=== PATIENT | female | born 1950 | race Caucasian/White ===

== ENCOUNTER → 2020-08-29 15:19 | Outpatient (CLI) | payer MEDICARE, OTHER, SELFPAY ==
--- NOTE | ~2020-08-29 | MM_ITS ---
EXAMINATION: MM screening kenna BI w stephan HISTORY: Screening mammogram TECHNIQUE: Craniocaudal and mediolateral oblique 3-D tomosynthesis images were obtained and synthetic 2-D images were generated. CAD analysis was submitted and interpreted. COMPARISON: 11/20/2018, 11/18/2017 bilateral digital screening mammogram examinations BREAST PARENCHYMAL COMPOSITION: There are scattered areas of fibroglandular density. FINDINGS: Stable mild fibroglandular asymmetry and occasional benign calcifications. There is no evid ence of suspicious mass, calcification, or architectural distortion to suggest malignancy in either b reast. There has been no suspicious interval change. IMPRESSION: 1. No mammographic evidence of malignancy. 2. Recommend routine screening mammography in one year. BI-RADS Category 2: Benign finding(s). Reviewed, dictated and finalized at location B.
== END ==
PROVIDERS: Visit Provider Nurse Practitioner Obstetrics & Gynecology
DX: Z12.31 Encounter for screening mammogram for malignant neoplasm of breast (principal)
CPT/HCPCS: 77063; 77067

== ENCOUNTER → 2021-10-26 07:49 | Outpatient (CLI) | payer MEDICARE, OTHER, SELFPAY ==
--- NOTE | ~2021-10-26 | MM_ITS ---
EXAMINATION: MM screening kenna BI w stephan HISTORY: Screening mammogram TECHNIQUE: Craniocaudal and mediolateral oblique 3-D tomosynthesis images were obtained and synthetic 2-D images were generated. CAD analysis was submitted and interpreted. COMPARISON: 08/29/2020, 11/20/2018, 11/18/2017 bilateral screening mammogram examinations BREAST PARENCHYMAL COMPOSITION: There are scattered areas of fibroglandular density. FINDINGS: Stable mild fibroglandular asymmetry and scattered benign calcifications are again noted. T here is no evidence of suspicious mass, calcification, or architectural distortion to suggest maligna ncy in either breast. There has been no suspicious interval change. IMPRESSION: 1. No mammographic evidence of malignancy. 2. Recommend routine screening mammography in one year. BI-RADS Category 2: Benign finding(s). Reviewed, dictated and finalized at location A. ORDER CLERK
--- NOTE | ~2021-10-26 | DEXA_ITS ---
Bone Density Report Name: DOYLE CHOI Age: 71 Sex: Female Ethnicity: White Date of : 1950 Indication: postmenopausal; screening for osteoporosis; Referring Provider: UNKNOWN, UNKNOWN Study: Bone densitometry was performed. Exam Date: October 26, 2021 Accession number: [id number] Bone Density: Region BMD T-score Z-score Classification AP Spine (L1-L4) 1.238 1.7 3.9 Normal Femoral Neck (Left) 0.862 0.1 1.9 Normal Total Hip (Left) 1.012 0.6 2.1 Normal Femoral Neck (Right) 0.881 0.3 2.1 Normal Total Hip (Right) 0.997 0.4 2.0 Normal Total Hip Mean 1.005 0.5 2.1 Normal World Health Organization criteria for BMD impression classify patients as: Normal (T-score at or above -1.0), Osteopenia (T-score between -1.0 and -2.5), or Osteoporosis (T-score at or below -2.5). 10-year Fracture Risk: FRAX not reported because: All T-scores for Spine Total, Hip Total, Femoral Neck at or above -1.0 Previous Exams: Region Exam Age BMD T-score BMD Change BMD Change Date g/cm2 vs Baseline vs Previous AP Spine(L1-L4) 10/26/2021 71 1.238 1.7 -0.051 0.022 11/18/2017 67 1.216 1.5 -0.073 -0.022 08/23/2015 64 1.238 1.7 -0.051 -0.001 07/21/2012 61 1.239 1.7 -0.050 0.011 09/24/2010 60 1.228 1.6 -0.061 0.043* 12/19/2006 56 1.185 1.3 -0.104 -0.104 10/24/2003 53 1.289 2.2 Total Hip(Left) 10/26/2021 71 1.012 0.6 -0.106 -0.029 11/18/2017 67 1.041 0.8 -0.077 -0.062* 08/23/2015 64 1.104 1.3 -0.015 -0.010 07/21/2012 61 1.114 1.4 -0.005 0.030* 09/24/2010 60 1.084 1.2 -0.035 -0.038* 12/19/2006 56 1.121 1.5 0.003 0.003 10/24/2003 53 1.118 1.4 Total Hip(Right) 10/26/2021 71 0.997 0.4 -0.120 -0.046 11/18/2017 67 1.043 0.8 -0.074 -0.044* 08/23/2015 64 1.086 1.2 -0.030 -0.025 07/21/2012 61 1.112 1.4 -0.004 0.024 09/24/2010 60 1.088 1.2 -0.029 -0.053* 12/19/2006 56 1.141 1.6 0.025 0.025 10/24/2003 53 1.116 1.4 *Denotes significance at 95% confidence level, LSC for AP Spine = 0.022 g/cm2, LSC for Total Hip = 0.027 g/cm2 Clinical Information Provided by Patient: Has used the following med
== END ==
DX: Z12.31 Encounter for screening mammogram for malignant neoplasm of breast (principal); Z78.0 Asymptomatic menopausal state
CPT/HCPCS: 77063; 77067; 77080

== ENCOUNTER 2025-05-10 10:11 | Outpatient (CLI) | payer MEDICARE, OTHER, SELFPAY ==
--- NOTE | ~2025-05-10 | MM_ITS ---
EXAMINATION: MM screening kenna BI w stephan HISTORY: Screening TECHNIQUE: Craniocaudal and mediolateral oblique 3-D tomosynthesis images were obtained and synthetic 2-D images were generated. CAD analysis was submitted and interpreted. COMPARISON: Comparison to multiple prior studies sequentially, with oldest reviewed study dated 10/31. BREAST PARENCHYMAL COMPOSITION: Not dense: There are scattered areas of fibroglandular density. FINDINGS: There is no evidence of suspicious mass, calcification, or architectural distortion to sugg est malignancy in either breast. There has been no suspicious interval change. IMPRESSION: 1. No mammographic evidence of malignancy. 2. Recommend routine screening mammography in one year. BI-RADS Category 1: Negative Reviewed, dictated and finalized at location B.
== END 2025-05-10 10:12 | disposition home or self-care (01) ==
DX: Z12.31 Encounter for screening mammogram for malignant neoplasm of breast (principal)
CPT/HCPCS: 77063; 77067

== ENCOUNTER 2025-07-04 13:39 | Outpatient (CLI) | payer MEDICARE, OTHER, SELFPAY ==
--- NOTE | ~2025-07-04 | DEXA_ITS ---
Bone Density Report Name: DOYLE CHOI Age: 74 Sex: Female Ethnicity: White Date of : 1950 Indication: postmenopausal; screening for osteoporosis; Referring Provider: UNKNOWN, UNKNOWN Study: Bone densitometry was performed. Exam Date: July 04, 2025 Accession number: [id number] Bone Density: Region BMD T-score Z-score Classification AP Spine(L1-L4) 1.247 1.8 4.1 Normal Femoral Neck (Left) 0.830 -0.2 1.8 Normal Total Hip (Left) 0.954 0.1 1.8 Normal Femoral Neck (Right) 0.808 -0.4 1.6 Normal Total Hip (Right) 0.955 0.1 1.8 Normal Total Hip Mean 0.955 0.1 1.8 Normal World Health Organization criteria for BMD impression classify patients as: Normal (T-score at or above -1.0), Osteopenia (T-score between -1.0 and -2.5), or Osteoporosis (T-score at or below -2.5). 10-year Fracture Risk: FRAX not reported because: All T-scores for Spine Total, Hip Total, Femoral Neck at or above -1.0 Previous Exams: -- Region Exam Age BMD T-score BMD Change BMD Change Date g/cm2 vs Baseline vs Previous -- AP Spine (L1-L4) 07/04/2025 74 1.247 1.8 -3.3%# 0.7%# 10/26/2021 71 1.238 1.7 -4.0%# 1.8%# 11/18/2017 67 1.216 1.5 -5.7%# -1.8% 08/23/2015 64 1.238 1.7 -4.0%# -0.1% 07/21/2012 61 1.239 1.7 -3.9%# 0.9% 09/24/2010 60 1.228 1.6 -4.7%# 3.6%* 12/19/2006 56 1.185 1.3 -8.0%# -8.0%# 10/24/2003 53 1.289 2.2 Total Hip(Left) 07/04/2025 74 0.954 0.1 -14.7%# -5.7%# 10/26/2021 71 1.012 0.6 -9.5%# -2.8%# 11/18/2017 67 1.041 0.8 -6.9%# -5.7%* 08/23/2015 64 1.104 1.3 -1.3%# -0.9% 07/21/2012 61 1.114 1.4 -0.4%# 2.8%* 09/24/2010 60 1.084 1.2 -3.1%# -3.4%* 12/19/2006 56 1.121 1.5 0.2%# 0.2%# 10/24/2003 53 1.118 1.4 Total Hip(Right) 07/04/2025 74 0.955 0.1 -14.4%# -4.1%# 10/26/2021 71 0.997 0.4 -10.7%# -4.4%# 11/18/2017 67 1.043 0.8 -6.6%# -4.0%* 08/23/2015 64 1.086 1.2 -2.7%# -2.3% 07/21/2012 61 1.112 1.4 -0.4%# 2.2% 09/24/2010 60 1.088 1.2 -2.6%# -4.7%* 12/19/2006 56 1.141 1.6 2.2%# 2.2%# 10/24/2003 53 1.116 1.4 -- *Denotes significance at 95% confidence level, LSC for AP Spine = 0.022 g/cm2, LSC for Total Hip = 0.027 g/cm2 # Denotes dissimilar scan types or analysis methods Clinical Information Provided by Patient: Has used the following medications: Vitamin D Patient maximum height was 65 Menopause Age: 46 Drinks caffeinated beverages Onset of menses at age 14 Number of children 2 Impression: The patient has normal bone mass. Unable to evaluate interval change due to the use of different scan modes. Discussion: BONE DENSITY IS ABOVE THE MINIMUM DESIRABLE LEVEL AT ALL SKELETAL SITES TESTED. This patient?s bone mineral density is above the minimum desirable level (T-score -1.0 or better) at all sites measured. The patient should follow a healthful lifestyle (good nutrition with adequate calcium and vitamin D, and appropriate weight-bearing exercise). Follow-Up: Consider repeating this study in 5 years or sooner if there is some new clinical indication. Reported by: LIANE on 07/04/2025 2:17:00 PM. Reviewed, dictated and finalized at location A.
== END 2025-07-04 13:40 | disposition home or self-care (01) ==
LOC: MICIMG 13:40
DX: Z78.0 Asymptomatic menopausal state (principal)
CPT/HCPCS: 77080